=== PATIENT | male | born 1940 | race Caucasian/White ===

== ENCOUNTER 2023-11-19 10:13 | Emergency (ER) | payer MEDICARE ==
[~2023-11-19] VITALS: Ht 172.7 cm; Wt 88.7 kg
[2023-11-19] MEDS ORDERED: BUPR1FIL17 SL (11:31)
[2023-11-19 11:37] VITALS: BP 132/80; PULSE 78; RESP 18; TEMP 97.8; O2SAT 97
== END 2023-11-19 11:39 | disposition home or self-care (01) ==
LOC: ER 10:14
DX: Z00.8 Encounter for other general examination (principal)
CPT/HCPCS: 99283

== ENCOUNTER 2024-01-09 09:01 | Emergency (ER) | payer OTHER ==
[~2024-01-09] VITALS: Ht 172.7 cm; Wt 81.2 kg
[~2024-01-09 09:01] MED LIST: BUPR1FIL17 SL
[2024-01-09 09:26] VITALS: BP 112/58; PULSE 83; RESP 18; O2SAT 96
[2024-01-09] MEDS ORDERED: BUPR1FIL7 SL (10:09)
[2024-01-09 10:31] VITALS: TEMP 98.2
== END 2024-01-09 10:34 | disposition home or self-care (01) ==
LOC: ER 09:01
DX: Z76.0 Encounter for issue of repeat prescription (principal); Z79.899 Other long term (current) drug therapy
CPT/HCPCS: 99281